=== PATIENT | female | born 1970 | race African-American/Black ===

== ENCOUNTER 2017-06-17 07:47 | Emergency (ER) | payer SELFPAY ==
[~2017-06-17] VITALS: Ht 167.6 cm; Wt 68.0 kg
[2017-06-17 12:02] VITALS: BP 139/81
== END 2017-06-17 12:25 | disposition home or self-care (01) ==
LOC: ER 08:21
DX: M54.2 Cervicalgia (principal); M54.89 Other dorsalgia; Z88.0 Allergy status to penicillin; V43.62XA Car passenger injured in collision with other type car in traffic accident, initial encounter; Y93.89 Activity, other specified; Y92.488 Other paved roadways as the place of occurrence of the external cause
CPT/HCPCS: 99283